=== PATIENT | male | born 1955 | race African-American/Black ===

== ENCOUNTER 2016-12-31 16:23 | Emergency (ER) | payer MEDICAID, OTHER ==
[~2016-12-31] VITALS: Ht 172.7 cm; Wt 91.0 kg
[~2016-12-31 16:23] MED LIST: AMLO5TAB4 PO
[2016-12-31 19:00] VITALS: BP 138/93
[2016-12-31 19:32] LABS: CLARITY URINE TURBID (CLEAR); COLOR URINE ORANGE (YELLOW); GLUCOSE URINE NEGATIVE (NEGATIVE); KETONES URINE NEGATIVE (NEGATIVE); LEUKOCYTE ESTERASE URINE 2+ (NEGATIVE); NITRITE URINE POSITIVE (NEGATIVE); OCCULT BLOOD URINE 2+ (NEGATIVE); PH URINE 5.5 (4.5-8.0); PROTEIN URINE 2+ (NEGATIVE); SPECIFIC GRAVITY URINE 1.025 (1.005-1.030)
== END 2016-12-31 20:01 | disposition home or self-care (01) ==
LOC: ER 18:23
DX: T83.031A Leakage of indwelling urethral catheter, initial encounter (principal); Y73.8 Miscellaneous gastroenterology and urology devices associated with adverse incidents, not elsewhere classified; Y92.098 Other place in other non-institutional residence as the place of occurrence of the external cause; N39.0 Urinary tract infection, site not specified; I10 Essential (primary) hypertension; E78.00 Pure hypercholesterolemia, unspecified; F17.211 Nicotine dependence, cigarettes, in remission; F12.90 Cannabis use, unspecified, uncomplicated; F10.10 Alcohol abuse, uncomplicated
CPT/HCPCS: 81001; 99284; A4315

== ENCOUNTER 2017-03-01 01:23 | Emergency (ER) | payer MEDICAID ==
[~2017-03-01] VITALS: Ht 172.7 cm; Wt 95.0 kg
[2017-03-01 02:24] VITALS: BP 179/94
== END 2017-03-01 04:00 | disposition home or self-care (01) ==
LOC: ER 01:23
DX: Z46.6 Encounter for fitting and adjustment of urinary device (principal); R33.9 Retention of urine, unspecified; I10 Essential (primary) hypertension; E78.00 Pure hypercholesterolemia, unspecified; F12.10 Cannabis abuse, uncomplicated; Z85.46 Personal history of malignant neoplasm of prostate
CPT/HCPCS: 51702; 99284; Z7610; A4315

== ENCOUNTER 2017-05-01 23:23 | Emergency (ER) | payer MEDICAID, OTHER ==
[~2017-05-01] VITALS: Ht 175.3 cm; Wt 87.0 kg
[2017-05-02 01:15] VITALS: BP 138/78
== END 2017-05-02 08:15 | disposition home or self-care (01) ==
LOC: ER 05-02 07:21
DX: R33.8 Other retention of urine (principal); E78.00 Pure hypercholesterolemia, unspecified; I10 Essential (primary) hypertension; N40.1 Benign prostatic hyperplasia with lower urinary tract symptoms; F12.10 Cannabis abuse, uncomplicated
CPT/HCPCS: 51702; 99284; Z7610; A4315

== ENCOUNTER 2017-05-12 08:11 | Emergency (ER) | payer MEDICAID ==
[~2017-05-12] VITALS: Ht 172.7 cm; Wt 90.0 kg
[2017-05-12 09:15] LABS: KETONES URINE NEGATIVE (NEGATIVE); LEUKOCYTE ESTERASE URINE 3+ (NEGATIVE); NITRITE URINE POSITIVE (NEGATIVE); OCCULT BLOOD URINE 3+ (NEGATIVE); PROTEIN URINE 1+ (NEGATIVE); SPECIFIC GRAVITY URINE 1.012 (1.005-1.030); UROBILINOGEN URINE 0.2 E.U./dL (0.2-1.0)
[2017-05-12 09:19] LABS: CLARITY URINE CLOUDY (CLEAR); COLOR URINE YELLOW (YELLOW)
[2017-05-12 11:20] VITALS: BP 134/68
== END 2017-05-12 12:26 | disposition home or self-care (01) ==
LOC: ER 09:56
DX: Z46.6 Encounter for fitting and adjustment of urinary device (principal); N39.0 Urinary tract infection, site not specified; E78.00 Pure hypercholesterolemia, unspecified; I10 Essential (primary) hypertension; F12.10 Cannabis abuse, uncomplicated
CPT/HCPCS: 51702; 81001; 87077; 87086; 87186; 99284

== ENCOUNTER 2017-05-19 19:29 | Emergency (ER) | payer MEDICAID ==
[~2017-05-19] VITALS: Ht 172.7 cm; Wt 86.0 kg
[2017-05-19 19:54] VITALS: BP 152/98
== END 2017-05-20 | disposition left against medical advice (07) ==
LOC: ER 20:01
DX: T83.031A Leakage of indwelling urethral catheter, initial encounter (principal); Z53.21 Procedure and treatment not carried out due to patient leaving prior to being seen by health care provider

== ENCOUNTER 2023-12-27 18:00 | Inpatient (IN) | payer OTHER, MEDICAID, MEDICARE ==
[~2023-12-27] VITALS: Ht 172.7 cm; Wt 92.5 kg
[2023-12-27 18:03] VITALS: O2SAT 99
[2023-12-27] MEDS ORDERED: LABETALOL 5MG/ML 4ML INJ IV ONE (18:15)
[2023-12-27] MEDS: SODIUM CHLORIDE 0.9% 1000ML BAG (SEPSIS BOLUS) IV ONE (18:55)
[2023-12-27] MEDS: LEVETIRACETAM 500MG PREMIX 100 ML IV ONE (18:56)
[2023-12-27] MEDS: CEFTRIAXONE 1GM/50ML 50 ML IV ONE (18:56)
[2023-12-27] MEDS: NICARDIPINE 40MG/200ML PREMIX 200 ML IV STA (18:56)
[2023-12-27 19:01] LABS: CHLORIDE 107 mEq/L (98-107); POTASSIUM 3.6 mEq/L (3.5-5.1); SODIUM 138 mEq/L (136-145)
[2023-12-27 19:02] LABS: BASOPHILS % 0.4 % (0.0-2.0); CARBON DIOXIDE 25 mEq/L (21-32); EOSINOPHILS % 0.5 % (0.0-5.0); HEMATOCRIT. 37.8 % (42.0-52.0); HEMOGLOBIN. 13.4 g/dL (14.0-18.0); LYMPHOCYTES % 10.6 % (20.0-50.0); MEAN CORPUSCULAR HEMOGLOBIN 30.1 pg (28.0-32.0); MEAN CORPUSCULAR HGB CONC 35.4 g/dL (31.0-37.0); MEAN PLATELET VOLUME 9.4 fl (7.4-10.4); MONOCYTES % 4.6 % (2.0-8.0); NEUTROPHILS % 83.9 % (40.0-76.0); PLATELET 234 x1000/uL (130-400); RED BLOOD CELL COUNT 4.45 mill/uL (4.7-6.1); RED CELL DISTRIBUTION WIDTH 15.8 % (11.6-14.6); WHITE BLOOD COUNT 8.4 x1000/uL (4.5-11.0)
[2023-12-27 19:03] LABS: CALCIUM 9.4 mg/dL (8.7-10.4)
[2023-12-27 19:07] LABS: CREATININE 1.1 mg/dL (0.6-1.3); GLUCOSE 121 mg/dL (70-105); UREA NITROGEN BLOOD 12 mg/dL (9-23)
[2023-12-27 19:08] LABS: LACTIC ACID 2.1 mmol/L (0.4-2.0)
[2023-12-27 19:09] LABS: ALANINE AMINOTRANSFERASE 8 IU/L (10-49); ALBUMIN 4.4 g/dL (3.2-4.8); ASPARTATE AMINOTRANSFERASE 14 IU/L (<34)
[2023-12-27 19:10] LABS: BILIRUBIN TOTAL 0.4 mg/dL (0.1-1.0); PROTEIN TOTAL 7.3 g/dL (6.0-8.3)
[2023-12-27 19:13] LABS: ETHANOL BLOOD < 10 mg/dL (<10); TROPONIN I HIGH SENSITIVITY 230 ng/L (3.0-53)
[2023-12-27 19:21] LABS: PARTIAL THROMBOPLASTIN TIME 21.7 sec (23.4-31.0); PROTHROMBIN TIME 10.9 sec (9.6-11.0)
[2023-12-27 19:33] LABS: *AMPHETAMINES SCREEN URINE NEGATIVE (NEGATIVE); *BARBITURATES SCREEN URINE NEGATIVE (NEGATIVE); *BENZODIAZEPINES SCREEN URINE NEGATIVE (NEGATIVE)
[2023-12-27 19:34] LABS: *COCAINE SCREEN URINE NEGATIVE (NEGATIVE); CANNABINOID URINE SCREEN NEGATIVE (NEGATIVE); ECSTASY MDMA SCREEN URINE NEGATIVE (NEGATIVE); METHADONE URINE SCREEN NEGATIVE (NEGATIVE); OPIATES URINE SCREEN NEGATIVE (NEGATIVE); PHENCYCLIDINE URINE SCREEN NEGATIVE (NEGATIVE)
[2023-12-27] MEDS ORDERED: NICARDIPINE 100 MG in SODIUM CHLORIDE 0.9% 60 ML IV PRN (19:45)
[2023-12-27] MEDS: AZITHROMYCIN 500MG/250ML 250 ML IV ONE (20:07)
[2023-12-27] MEDS ORDERED: NALOXONE HCL 0.4MG/ML VIAL IV PRN (21:30)
[2023-12-27] MEDS: IOHEXOL-350 100 ML BOTTLE ONE (22:28)
[2023-12-27] MEDS: DEXT 5%/LACTATED RINGERS 1,000 ML IV SCH (22:39)
[2023-12-27 23:15] VITALS: BP 153/92; PULSE 83; RESP 20; TEMP 36.00288; O2SAT 95
[2023-12-27 23:30] VITALS: BP 138/78; PULSE 88; RESP 18; O2SAT 95
[2023-12-27 23:45] VITALS: BP 142/78; PULSE 100; RESP 17; O2SAT 93
[2023-12-27] MEDS: NICARDIPINE 100 MG in SODIUM CHLORIDE 0.9% 60 ML IV PRN (23:57)
[2023-12-28] VITALS (83 sets, daily range): BP systolic 109–152; BP diastolic 55–105; PULSE 58–118; RESP 10–26; TEMP 36.0288–36.78072; O2SAT 87–98
[2023-12-28] MEDS: LEVETIRACETAM 500MG PREMIX 100 ML IV SCH (00:29)
[2023-12-28] MEDS: MORPHINE SULFATE 2 MG/ML INJ (NOT FOR IM USE) IV PRN ×2 (00:48→06:57)
[2023-12-28] MEDS ORDERED: ONDANSETRON HCL 4MG/2ML INJ IV PRN (14:45)
[2023-12-28] MEDS: PANTOT AC/MIN OIL/PET HY-PHL OINT (AQUAPHOR) TOP SCH (20:42)
[2023-12-28] MEDS: ATORVASTATIN CALCIUM 40MG TABLET PO SCH (20:42)
[2023-12-29] VITALS: BP 97/66; PULSE 74; RESP 22; TEMP 36.28068; O2SAT 97
[2023-12-29 04:15] VITALS: BP 150/88; PULSE 53; RESP 22; TEMP 36.16956; O2SAT 98
[2023-12-29] MEDS: PANTOPRAZOLE 40MG DR TABLET PO SCH (06:01)
[2023-12-29] MEDS: SODIUM CHLORIDE 0.9% 3ML FLUSH IVF SCH (06:22)
[2023-12-29 07:16] LABS: BASOPHILS % 0.5 % (0.0-2.0); EOSINOPHILS % 8.3 % (0.0-5.0); HEMATOCRIT. 37.3 % (42.0-52.0); HEMOGLOBIN. 13.2 g/dL (14.0-18.0); LYMPHOCYTES % 35.8 % (20.0-50.0); MEAN CORPUSCULAR HEMOGLOBIN 30.4 pg (28.0-32.0); MEAN CORPUSCULAR HGB CONC 35.5 g/dL (31.0-37.0); MEAN CORPUSCULAR VOLUME 85.7 fL (80.0-94.0); MEAN PLATELET VOLUME 9.5 fl (7.4-10.4); MONOCYTES % 9.6 % (2.0-8.0); NEUTROPHILS % 45.8 % (40.0-76.0); PLATELET 188 x1000/uL (130-400); RED BLOOD CELL COUNT 4.35 mill/uL (4.7-6.1); RED CELL DISTRIBUTION WIDTH 16.4 % (11.6-14.6); WHITE BLOOD COUNT 6.1 x1000/uL (4.5-11.0)
[2023-12-29 07:23] LABS: CHLORIDE 108 mEq/L (98-107); POTASSIUM 3.2 mEq/L (3.5-5.1); SODIUM 140 mEq/L (136-145)
[2023-12-29 07:24] LABS: CARBON DIOXIDE 28 mEq/L (21-32)
[2023-12-29 07:29] LABS: CREATININE 0.8 mg/dL (0.6-1.3); GLUCOSE 100 mg/dL (70-105)
[2023-12-29 07:30] LABS: LDL CHOLESTEROL 143 mg/dL (5-100); TRIGLYCERIDE 102 mg/dL (0-150); UREA NITROGEN BLOOD 7 mg/dL (9-23)
[2023-12-29 07:31] LABS: CHOLESTEROL 238 mg/dL (<200); HDL CHOLESTEROL 61 mg/dL (>55)
[2023-12-29 08:00] VITALS: BP 155/88; PULSE 61; RESP 20; TEMP 35.61396; O2SAT 99
[2023-12-29 12:00] VITALS: BP 137/78; PULSE 64; RESP 18; TEMP 35.61396; O2SAT 95
[2023-12-29 16:00] VITALS: BP 153/94; PULSE 55; RESP 18; TEMP 36.44736; O2SAT 96
[2023-12-29 20:00] VITALS: BP 146/81; PULSE 63; RESP 19; TEMP 36.44736; O2SAT 97
[2023-12-30] VITALS: BP 162/90; PULSE 68; RESP 18; TEMP 36.55848; O2SAT 98
[2023-12-30 04:00] VITALS: BP 149/85; PULSE 62; RESP 18; TEMP 36.50292; O2SAT 100
[2023-12-30 08:00] VITALS: BP 145/80; PULSE 51; RESP 18; TEMP 36.22512; O2SAT 96
[2023-12-30] MEDS ORDERED: LEVETIRACETAM 500MG PREMIX 100 ML IV SCH (11:30)
[2023-12-30 12:00] VITALS: BP 154/79; PULSE 60; RESP 18; TEMP 36.44736; O2SAT 95
[2023-12-30 16:00] VITALS: BP 155/89; PULSE 58; RESP 18; TEMP 36.89184; O2SAT 98
[2023-12-30] MEDS: AMLODIPINE 5MG TABLET PO SCH (19:31)
[2023-12-30] MEDS: LEVETIRACETAM 500MG TABLET PO SCH (20:22)
[2023-12-31] VITALS: BP 142/76; PULSE 59; RESP 19; TEMP 36.50292; O2SAT 98
[2023-12-31] MEDS ORDERED: LOSARTAN 50 MG TABLET PO SCH (01:30)
[2023-12-31 04:00] VITALS: BP 152/85; PULSE 56; RESP 19; TEMP 36.44736; O2SAT 97
[2023-12-31 08:00] VITALS: BP 152/82; PULSE 96; RESP 19; TEMP 36.114; TEMP 36.11400; O2SAT 96
[2023-12-31] MEDS: FAMOTIDINE 20MG TABLET PO SCH (08:43)
[2023-12-31] MEDS: LOSARTAN 50 MG TABLET PO SCH (08:44)
== END 2023-12-31 12:15 | disposition home or self-care (01) | DRG 65 ==
LOC: ER 18:00 → MICUSO 19:47 → MICUNO 12-28 19:03 → 7EST 12-28 21:58
PROVIDERS: ADMIT Internal Medicine; ATTEND Internal Medicine
DX: I61.1 Nontraumatic intracerebral hemorrhage in hemisphere, cortical (principal); I16.1 Hypertensive emergency; R94.31 Abnormal electrocardiogram [ECG] [EKG]; R79.89 Other specified abnormal findings of blood chemistry; I10 Essential (primary) hypertension; E78.00 Pure hypercholesterolemia, unspecified; R29.704 NIHSS score 4; S00.81XA Abrasion of other part of head, initial encounter; W19.XXXA Unspecified fall, initial encounter; Z86.73 Personal history of transient ischemic attack (TIA), and cerebral infarction without residual deficits
CPT/HCPCS: 36415; 70486; 70496; 70498; 71045; 80048; 80053; 80061; 80305; 80320; 83605; 84484; 85025; 86850; 86900; 92610; 93005; 97161; 97166; 97535; 99291; J0456; J0696; J1953; J2270; J3490; J7030; J7050; Q9967; G0480